=== PATIENT | male | born 1960 | race Caucasian/White ===

== ENCOUNTER 2017-06-21 09:02 | Day surgery (SDC) | payer OTHER ==
[~2017-06-21 09:02] MED LIST: Buffered Lidocaine 0.9% SYRIN* 5 ML/SYR SYRINGE INTRADERM ONE; DiMENhydriNATE IV* 50 MG/ML VIAL IV PUSH PRN; Famotidine IV* 10 MG/ML 2 ML (20 mg) IV ONE; Morphine INJ* 2 MG/ML 1 ML CARPUJECT IV PRN; Naloxone* 0.4 MG/ML 1 ML VIAL IV PRN; PROCHLORPERAZINE INJ 5 MG/ML 2 ML VIAL IV PRN; fentaNYL* 50 MCG/ML 2 ML VIAL (100 MCG VIAL) IV PRN
[2017-06-21] MEDS ORDERED: Famotidine IV* 10 MG/ML 2 ML (20 mg) ONE (09:10)
[2017-06-21] MEDS ORDERED: Lidocaine 4% TOPICAL* 50 ML TOP.SOLN ONE (10:41)
[2017-06-21] MEDS ORDERED: Oxymetazoline 0.05% NASAL SPR* 15 ML BTL ONE (10:41)
[2017-06-21] MEDS ORDERED: fentaNYL* 50 MCG/ML 2 ML VIAL (100 MCG VIAL) ONE (10:48)
[2017-06-21] MEDS ORDERED: Atracurium* 10 MG/ML 10 ML VIAL ONE (10:48)
[2017-06-21] MEDS ORDERED: Midazolam* 1 MG/ML 5 ML VIAL (5 MG) ONE (10:49)
[2017-06-21] MEDS ORDERED: Ondansetron INJ* 2 MG/ML VIAL ONE (11:21)
[2017-06-21] MEDS ORDERED: Dexamethasone IV* 4 MG/ML 1 ML (4 MG) ONE (11:21)
[2017-06-21] MEDS ORDERED: Propofol* 10 MG/ML 20 ML BTL IV PUSH ONE (11:21)
[2017-06-21] MEDS ORDERED: Lidocaine 2% PF * 5 ML VIAL ONE (11:22)
[2017-06-21] MEDS ORDERED: Lidocaine 2% PF* 10 ML AMP ONE (11:22)
[2017-06-21] MEDS ORDERED: Labetalol IV* 5 MG/ML 20 ML VIAL ONE (11:26)
[2017-06-21] MEDS ORDERED: Flumazenil* 0.1 MG/ML 5 ML MDV ONE (11:26)
[2017-06-21 12:05] VITALS: BP 129/83
--- NOTE | 2017-06-21 23:27 | OP ---
DATE OF OPERATION: 06/21/17 - [facility] DATE OF : 62 SURGEON: Quinton Barry MD PRE-OP DIAGNOSIS: Squamous cell carcinoma, HPV positive, right neck with unknown primary. POST-OP DIAGNOSIS: Squamous cell carcinoma, HPV positive, right neck with unknown primary. OPERATIVE PROCEDURE: Laryngoscopy, biopsy of tongue base and nasopharynx. BRIEF HISTORY: This is a 57-year-old gentleman, previous tonsillectomy, presented with a right neck mass. Fine needle aspiration of HPV positive squamous cell carcinoma. DESCRIPTION OF PROCEDURE: The patient was taken to the operating room, general anesthetic was given, the patient intubated. Tongue, mandible, subpalate were retracted. Examination of nasopharynx were carried out. Some biopsies of the nasopharynx was carried out. Suspension laryngoscopy was then carried out, tongue base was examined. Biopsies were carried out of the right tongue base. Cautery was obtained for hemostasis. The patient was awakened, extubated and sent to the recovery room in stable condition. No mucosal abnormalities were identified. [id number]/[facility] #: [id number] MTDD
== END 2017-06-21 12:22 | disposition home or self-care (01) ==
LOC: OR 09:02
PROVIDERS: ATTEND Otolaryngology
DX: C77.0 Secondary and unspecified malignant neoplasm of lymph nodes of head, face and neck (principal); I10 Essential (primary) hypertension
CPT/HCPCS: 88305; A9270-GY; J1100; J2001; J2250; J2405; J2704; J3010

== ENCOUNTER 2017-07-10 12:06 | Observation (INO) | payer OTHER ==
[2017-07-10] MEDS ORDERED: Ondansetron INJ* 2 MG/ML VIAL IV PRN (13:14)
[2017-07-10] MEDS ORDERED: NS 0.9% 1000 ML* 1,000 ML IV SCH (13:15)
[2017-07-10] MEDS ORDERED: Midazolam* 1 MG/ML 10 ML VIAL (10 MG) ONE (13:18)
[2017-07-10] MEDS ORDERED: fentaNYL* 50 MCG/ML 2 ML VIAL (100 MCG VIAL) ONE (13:18)
[2017-07-10] MEDS ORDERED: Clindamycin 900 MG IVPREMIX(* 900 MG/50 ML SDV IV ONE ×2 (13:24→14:00)
[2017-07-10] MEDS ORDERED: Lidocaine 1%* 5 ML VIAL ONE (14:06)
[2017-07-10] MEDS ORDERED: Prochlorperazine TAB* 10 MG PO PRN (16:17)
[2017-07-10] MEDS ORDERED: SUMAtriptan TAB* 25 MG PO PRN (16:17)
[2017-07-10] MEDS ORDERED: Ondansetron TAB* 4 MG PO PRN (16:18)
[2017-07-10] MEDS: HYDROmorphone INJ* 2 MG/ML CARPUJECT SYRINGE IV PRN ×2 (16:32→21:03)
[2017-07-10] MEDS ORDERED: Fluticasone NASAL SPRAY 50MCG* 16 gm SPRAY BTL BOTH NARES SCH (21:00)
--- NOTE | 2017-07-10 22:28 | PRO ---
CC: Dr. Eron Bedoya; Dr. Borjas* PROCEDURE REPORT: DATE OF OPERATION: 07/10/17 PROCEDURE: EGD with PEG tube placement. INDICATION: Lymph node cancer. REFERRING PHYSICIAN: Dr. Eron Bedoya and Dr. Borjas. MEDICATIONS GIVEN: 1. 125 mcg IV fentanyl. 2. 12 mg IV versed. 3. 900 mg IV clindamycin. 4. 1% lidocaine for skin anesthesia. DESCRIPTION OF PROCEDURE: After the EGD procedure including the risks, benefits and alternatives not limited to perforation, surgery and/or were explained to the patient, written consent was then obtained. IV clindamycin 900 mg had been given preprocedure. An Olympus gastroscope was then inserted into the patient's mouth, advanced down the esophagus, into the stomach, into the distal duodenum. In the esophagus, at the GE junction, he does have grade A erosive esophagitis. The scope was advanced through the GE junction into the body of the stomach. Retroflex view was unremarkable. Forward view also was unremarkable. Scope was advanced through a widely patent pylorus into the duodenal bulb, into the distal duodenum, both of which were unremarkable. The scope was then withdrawn into the stomach and it was insufflated. I then located an area approximately 5 fingerbreadths below the xiphoid procedure and 5 fingerbreadths to the left towards his spleen and using finger indentation, I did see good finger indentation coming through on the scope. I then used 1% lidocaine to numb up the overlying skin. I then used the finder needle to placed through the skin and into the abdominal cavity. Unfortunately, the needle I never did see it come through into the gastric lumen. I then again using 5 fingerbreadths below and lateral, found a spot more midline approximately a centimeter or two more midline again using 1% lidocaine, anesthetized the skin indentation. Again, I was able to visualize very good finger indentation and transillumination of the light through the skin. I then placed the finder needle again through this area and following the same track is my finger and unfortunately again I did not see it come through into the gastric lumen. I then moved more medially, moved the needle medial again well within the 5 fingerbreadths and approximately 4 fingerbreadths over at this time , 5 fingerbreadths down 4 fingerbreadths over. Finger indentation again seemed very good and strong. The transillumination was a little bit better in this area and I inserted the finger needle with 1% lidocaine and I did see the finder needle come through into the gastric lumen at this point. I then made a small cut over this area. The needle had been withdrawn and the larger trocar needle was then placed through and it did extend into the gastric lumen. I then placed the blue wire through the trocar needle and it was grasped with the snare. It was then withdrawn from the patient. The PEG tube was then tied on to the end of the wire and was pulled into place using traction technique. The patient tolerated the procedure well. A second look endoscopy did confirm successful placement of the PEG tube in the patient's gastric lumen. The scope was then withdrawn from the patient. He tolerated the procedure well and be admitted to the hospital as per my usual protocol. IMPRESSION: 1. Successful PEG tube placement into the gastric lumen. 2. The patient will be admitted to the hospital as per my typical protocol for nutritional consult, IV pain control and monitoring. I will see him first thing in the morning. If he is doing well, he can likely be discharged to his Radiation Oncology appointment. [id number]/[facility] #: [id number] VICENTE
[2017-07-11] MEDS: HYDROmorphone INJ* 2 MG/ML CARPUJECT SYRINGE IV PRN (01:42)
[2017-07-11 07:52] VITALS: BP 117/74
[2017-07-11] MEDS ORDERED: Lisinopril TAB* 10 MG PO SCH (09:00)
== END 2017-07-11 10:30 | disposition home or self-care (01) ==
LOC: ENDO 12:06 → SSU 15:59
PROVIDERS: ADMIT Internal Medicine Gastroenterology; ATTEND Internal Medicine Gastroenterology
PROC: 0DH63UZ Insertion of Feeding Device into Stomach, Percutaneous Approach (ICD-10-PCS; principal; 2017-07-10)
DX: R13.10 Dysphagia, unspecified (principal); C96.9 Malignant neoplasm of lymphoid, hematopoietic and related tissue, unspecified; I10 Essential (primary) hypertension; M54.9 Dorsalgia, unspecified; G89.29 Other chronic pain
CPT/HCPCS: 96374; 99156; 99157; G0378; J1170; J2250; J3010

== ENCOUNTER 2024-03-22 06:58 | Inpatient (IN) ==
[~2024-03-22 06:58] MED LIST changes: -Buffered Lidocaine 0.9% SYRIN* 5 ML/SYR SYRINGE INTRADERM ONE; -DiMENhydriNATE IV* 50 MG/ML VIAL IV PUSH PRN; -Famotidine IV* 10 MG/ML 2 ML (20 mg) IV ONE; +Lidocaine 1% w EPI 1:100,000 MDV 50 ML VIAL ONE; +Metoclopramide 5 MG/ML VIAL (10 mg) IV PRN; -Morphine INJ* 2 MG/ML 1 ML CARPUJECT IV PRN; +NS 0.45% 1000 ml BAG 1,000 ML IV SCH; +Naloxone 0.4 mg VIAL 0.4 mg/ml 1 ml VIAL IV PRN; -Naloxone* 0.4 MG/ML 1 ML VIAL IV PRN; +Ondansetron 4 mg VIAL 2 MG/ML 2 ml VIAL IV PRN; -PROCHLORPERAZINE INJ 5 MG/ML 2 ML VIAL IV PRN; +Thrombin 5,000 UNITS 1 APPLIC KIT - topical use - TOPICAL ONE; +ceFAZolin VIAL VIAL ONE; -fentaNYL* 50 MCG/ML 2 ML VIAL (100 MCG VIAL) IV PRN
[2024-03-22] MEDS ORDERED: ceFAZolin 2 GM PREMIX 2 GM/50 ML BAG ONE (07:02)
[2024-03-22] MEDS ORDERED: Chlorhexidine MOUTHWASH 0.12% 15 ML UDC ONE (07:02)
[2024-03-22 07:33] LABS: Rapid COVID-19 Molecular Undetected (Undetected)
[2024-03-22] MEDS: Buffered Lidocaine 1% SYRIN 1 ml INTRADERM ONE (07:37)
[2024-03-22] MEDS: Lactated Ringers 1000 ml BAG 1,000 ML IV SCH ×2 (07:37→14:55)
[2024-03-22] MEDS: Scopolamine 1 mg/72hr PATCH TRANSDERM ONE (07:38)
[2024-03-22] MEDS: Acetaminophen IV 1 GM/100ML 1,000 MG/100 ML BAG IV ONE (07:38)
[2024-03-22] MEDS ORDERED: Rocuronium 50 mg VIAL 10 mg/ml 5 ml VIAL (50 mg) ONE (08:02)
[2024-03-22] MEDS ORDERED: Midazolam 5 mg/5 ml VIAL 1 mg/ml 5 ml VIAL (5 mg) ONE (08:02)
[2024-03-22] MEDS ORDERED: fentaNYL 250 mcg/5 ml 50 MCG/ML 5 ml VIAL (250 MCG) ONE (08:02)
[2024-03-22] MEDS ORDERED: Propofol 10 MG/ML 20 ML BTL ONE (08:02)
[2024-03-22] MEDS ORDERED: Lidocaine 2% PF 5 ML VIAL ONE (08:02)
[2024-03-22] MEDS ORDERED: Phenylephrine IV 10 MG/ML 1 ml VIAL ONE (08:11)
[2024-03-22] MEDS ORDERED: Dexamethasone IV 4 MG/ML VIAL 1 ml VIAL ONE (09:11)
[2024-03-22] MEDS ORDERED: Ondansetron 4 mg VIAL 2 MG/ML 2 ml VIAL ONE (09:43)
[2024-03-22] MEDS ORDERED: fentaNYL 100 mcg/2 ml 50 MCG/ML VIAL ONE (10:40)
[2024-03-22] MEDS: fentaNYL 100 mcg/2 ml 50 MCG/ML VIAL IV PRN (10:43)
[2024-03-22] MEDS ORDERED: Ondansetron 4 mg VIAL 2 MG/ML 2 ml VIAL IV PRN ×2 (10:58→12:14)
[2024-03-22] MEDS ORDERED: Metoclopramide 5 MG/ML VIAL (10 mg) IV PRN (10:58)
[2024-03-22] MEDS ORDERED: Naloxone 0.4 mg VIAL 0.4 mg/ml 1 ml VIAL IV PRN (11:00)
[2024-03-22] MEDS ORDERED: NS 0.45% 1000 ml BAG 1,000 ML IV SCH (11:00)
[2024-03-22] MEDS ORDERED: Phenol 1.4% Throat Spray BTL MT PRN (12:14)
[2024-03-22] MEDS ORDERED: Magnesium Hydroxide LIQ 30 ML UDC PO PRN (12:14)
[2024-03-22] MEDS ORDERED: Morphine 2 MG/ML SYRINGE IV PRN (12:14)
[2024-03-22] MEDS ORDERED: Senna TAB 8.6 mg TAB PO PRN (12:14)
[2024-03-22] MEDS ORDERED: Calcium Carb (TUMS) 500 mg CHEW TAB PO PRN (12:14)
[2024-03-22] MEDS ORDERED: Benzocaine/Menthol LOZ MT PRN (12:14)
[2024-03-22] MEDS ORDERED: Dextran 70/Hypromellose Tears Eye Drops 15 ml BTL (for Artificials Tears) BOTH EYES PRN (12:14)
[2024-03-23] MEDS: Cholecalciferol (VIT D3) 1,000 unit TAB PO SCH (08:41)
[2024-03-23 10:37] VITALS: BP 131/67
== END 2024-03-23 10:45 | disposition home or self-care (01) | DRG 520 ==
LOC: OR 06:58 → MEDTELE 11:17
PROVIDERS: ADMIT Neurological Surgery; ATTEND Neurological Surgery